=== PATIENT | male | born 2000 | race Caucasian/White ===

== ENCOUNTER 2019-04-29 21:24 | Emergency (ER) | payer OTHER ==
[~2019-04-29] VITALS: Ht 170.2 cm; Wt 68.0 kg
[2019-04-29 21:34] VITALS: BP 150/80
--- NOTE | 2019-04-29 21:34 | NUR ---
TO BED # 12 AMBULATORY
--- NOTE | 2019-04-29 21:50 | NUR ---
PATIENT PRESENTS TO ED WITH ABD PAIN X2 DAYS. PT STATES HE THINK IT MAY BE FROM EATING IN N OUT X 2 DAYS AGO. PT DENIES N/V/D AT THIS TIME. LAST TIME PT VOMITTED WAS 5 HOURS AGO. PT DENIES URINARY SYMPTOMS. PT DENIES FEVERS OR CHILLS. NO PMH. NKDA. ; SKIN IS PINK/WARM/DRY; AAOX4 WITH EVEN AND STEADY GAIT; LUNGS CLEAR BL; HR EVEN AND REGULAR; PT DENIES ANY FEVER, CP, SOB, OR COUGH AT THIS TIME; PATIENT STATES PAIN OF 5/10 AT THIS TIME; VSS; PATIENT POSITIONED FOR COMFORT; HOB ELEVATED; BEDRAILS UP X2; BED DOWN. ER MD MADE AWARE OF PT STATUS.
[2019-04-29] MEDS ORDERED: DICYCLOMINE HCL LIQUID 20 MG, ALUMINUM HYD/MAG/SIMETHICONE 30 ML, LIDOCAINE VISCOUS 2% ... PO ONE ×3 (22:00)
--- NOTE | 2019-04-29 22:43 | NUR ---
PT APPEARS TO BE IN NO DISTRESS AT THIS TIME. VSS. PT STATES PAIN IMPROVED AFTER GI COCKTAIL.
[2019-04-29 22:47] VITALS: BP 128/82
== END 2019-04-29 22:44 | disposition home or self-care (01) ==
LOC: MED 21:24
DX: A05.9 Bacterial foodborne intoxication, unspecified (principal); J45.909 Unspecified asthma, uncomplicated
CPT/HCPCS: 81002; 99283